=== PATIENT | male | born 1950 | race Two or more races ===

== ENCOUNTER 2018-06-11 11:15 | Inpatient (IN) ==
[2018-06-11] MEDS ORDERED: Metoprolol Tartrate 25 MG Tablet PO ONE (12:39)
[2018-06-11] MEDS ORDERED: Chlorhexidine Gluconate 2% 1 Pack (2 Cloths) TOPICAL ONE (12:39)
[2018-06-11] MEDS ORDERED: Sodium Chlor 0.9% Inj 500 ML IV.SIG SCH (13:00)
--- NOTE | 2018-06-11 13:03 | P.HPUP ---
The Pre-Admit History and Physical Examination regarding the above named patient was reviewed (including, but not limited to, vital signs, heart, lungs, co-morbid conditions), and upon re-examination it is noted that: the patient's condition has not significantly changed since the last examination.
[2018-06-11] MEDS ORDERED: Lidocaine PF 1% Inj 5 ML Syringe INFILTRATN ONE (13:20)
[2018-06-11] MEDS ORDERED: Glycopyrrolate Inj 1 MG/5 ML Syringe IV.PUSH ONE (13:20)
[2018-06-11] MEDS ORDERED: Lidocaine 1% Inj 50 ML Vial ONE ×2 (13:45→13:49)
[2018-06-11] MEDS ORDERED: Lidocaine 1% Inj 50 ML Vial INFILTRATN ONE (14:22)
[2018-06-11] MEDS ORDERED: Sugammadex Inj 200 MG/2 ML Vial IV.PUSH ONE (15:15)
[2018-06-11] MEDS ORDERED: Bupivacaine PF 0.5% Inj 30 ML Vial NERV BLOCK PRN (15:30)
[2018-06-11] MEDS ORDERED: Potassium Chlor 40 mEq Premix 40 MEQ/100 ML PIGGYBACK IV.SIG PRN (15:30)
[2018-06-11] MEDS ORDERED: Potassium Chlor 20 mEq Premix 20 MEQ/100 ML PIGGYBACK IV.SIG PRN (15:30)
[2018-06-11] MEDS ORDERED: Acetaminophen 325 MG Tablet PO PRN (15:30)
[2018-06-11] MEDS ORDERED: Ketorolac Inj 30 MG/ML (IVP) Vial IV.PUSH PRN (15:30)
[2018-06-11] MEDS ORDERED: *Meperidine Inj 25 MG/ML Vial PERIprocedural Use ONLY ONE (15:32)
[2018-06-11] MEDS ORDERED: Meloxicam 7.5 MG Tablet PO PRN (15:33)
[2018-06-11] MEDS ORDERED: Loratadine 10 MG Tablet PO PRN (15:33)
[2018-06-11] MEDS ORDERED: Pregabalin 75 MG Capsule PO PRN (15:33)
[2018-06-11] MEDS ORDERED: Naloxone Inj 0.4 MG/ML Vial IV.PUSH PRN (15:40)
[2018-06-11] MEDS ORDERED: fentaNYL Citrate Inj 100 MCG/2 ML Ampul ONE ×2 (15:45→15:46)
[2018-06-11] MEDS ORDERED: KCL 20 mEq/D5W/NaCl 0.9% Inj 1,000 ML ONE (15:55)
[2018-06-11] MEDS ORDERED: Morphine Inj 30 MG/30 ML PCA.VIAL PCA ONE (16:12)
[2018-06-11] MEDS ORDERED: *morphine SULFATE 10 MG/ML PERIprocedure ONLY ONE (16:40)
[2018-06-11] MEDS: KCL 20 mEq/D5W/NaCl 0.9% Inj 1,000 ML IV.CONT SCH ×2 (17:12→22:52)
[2018-06-11] MEDS: Morphine Inj 30 MG/30 ML PCA.VIAL PCA PRN (17:15)
[2018-06-12] MEDS: KCL 20 mEq/D5W/NaCl 0.9% Inj 1,000 ML IV.CONT SCH ×4 (02:40→22:18)
[2018-06-12] MEDS: Morphine Inj 30 MG/30 ML PCA.VIAL PCA PRN (04:25)
[2018-06-12 04:35] LABS: Baso % (Auto) 0.1 % (0.0-2.0); Hematocrit 39.9 % (39.0-51.0); Hemoglobin 13.3 gm/dL (13.0-17.0); Lymph # (Auto) 0.7 th/mm3 (1.0-4.8); Lymph % (Auto) 5.9 % (9.0-44.0); Mean Corpuscular HGB Conc 33.4 % (32.0-36.0); Mean Corpuscular Volume 89.8 fL (80.0-100.0); Mean Platelet Volume 8.8 fL (7.0-11.0); Mono # (Auto) 1.1 th/mm3 (0.0-0.9); Mono % (Auto) 9.3 % (0.0-8.0); Neut # (Auto) 10.4 th/mm3 (1.8-7.7); Neut % (Auto) 84.7 % (16.0-70.0); Platelet Count 227 th/mm3 (150-450); Red Blood Count 4.45 mil/mm3 (4.50-5.90); Red Cell Distribution Width 13.1 % (11.6-17.2); White Blood Count 12.3 th/mm3 (4.0-11.0)
[2018-06-12 05:08] LABS: Calcium 7.1 mg/dL (8.5-10.1); Carbon Dioxide 24.2 meq/L (21.0-32.0); Potassium 4.3 meq/L (3.5-5.1)
[2018-06-12 05:20] LABS: Total Protein 5.6 g/dL (6.4-8.2)
--- NOTE | 2018-06-12 07:58 | P.PNCS ---
Subjective Colorectal Surgery Post Op Day #: 1 Interval history: afebrile, VSS UO good JEANETTE serous Objective Result Diagrams: 06/12/18 04:01 06/12/18 04:01 Objective Remarks: PE alert Abd - soft, wound clean, dry Assessment and Plan - Plan Imp: stable post-op OOB decr IVF tx to floor
[2018-06-12] MEDS: Pantoprazole Inj 40 MG Vial IV.PUSH SCH (08:19)
--- NOTE | 2018-06-12 20:20 | MP ---
cc: Arnav Kyle MD DATE OF OPERATION: 06/11/2018 PREOPERATIVE DIAGNOSIS: Cancer of the sigmoid colon. PROCEDURE: Exploratory laparotomy with proctosigmoidectomy and low pelvic anastomosis. POSTOPERATIVE DIAGNOSIS: Cancer of the sigmoid colon. SURGEON: Arnav Kyle MD EXPLOSIVE ORDNANCE DISPOSAL MANAGER: Davy Zavala MD PROCEDURE: The patient was placed in the supine position. After adequate general anesthesia, his legs were placed in the universal stirrups and supported appropriately. The abdomen and perineum were then prepped with Betadine solution and draped in the usual sterile fashion. With Dr. Zavala's assistance, the abdomen was opened through an infraumbilical transverse incision, dividing the rectus muscles with electrocautery. Exploration revealed a palpable tumor injected with Jessica ink in the sigmoid colon. There was a somewhat redundant sigmoid loop. The proximal colon was palpated and felt to be pretty unremarkable. The small bowel was run from ligament of Treitz down to the ileocecal valve and felt to be normal. The liver did have several cysts, but no other masses were noted. The gallbladder was unremarkable. The stomach and duodenum were unremarkable. Great vessels were of normal caliber and fairly soft to palpation. First, the sigmoid colon was mobilized medially by dividing along the white line of Toldt. The left ureter was identified and carefully preserved. Dissection then proceeded up to the left gutter, freeing the attachments to the left colon and mobilizing towards the splenic flexure. The right retroperitoneal space was then opened and the bowel dissected off the presacral fascia, preserving the presacral nerves. The pedicle for the superior hemorrhoidal vessels identified, divided between Kellys and ligated with Vicryl ties. Dissection then proceeded down, mobilizing the bowel off the presacral fascia down to the pelvic floor. The cul-de-sac was opened and the bowel fully mobilized for preparation for the anastomosis. The bowel was divided in the proximal rectum by taking the mesorectum with electrocautery. The bowel was then divided between a pursestring suture device and a Cee clamp. The bowel was incised to reach the rectum without tension and with good blood supply, preserving the left colic vessel. The marginal artery was taken at the appropriate point and the bowel divided between a pursestring suture device and a Cee clamp. The end of the bowel was sized to accept an EEA stapling anvil and this was secured with a pursestring suture. Dr. Zavala inserted the EEA stapling instrument transanally and under direct vision, it was brought up to the end of the rectal pouch and the pursestring suture tied. The stapler was then reassembled and the bowel aligned properly, the stapler closed and fired. Upon withdrawal, 2 complete donuts of tissue were seen. Gentle insufflation did confirm an airtight anastomosis. The abdomen was then irrigated copiously with normal saline. Adequate hemostasis achieved at all sites. Thomas-Lucia drain placed down into the presacral space and brought up through a stab wound in the right lower quadrant, secured to the skin with a nylon suture. A transverse incision was then closed, anatomically in 2 layers using #1 PDS sutures to reapproximate the respective fascial layers. The On-Q catheters were placed into the rectus sheaths on both sides and brought up through subcutaneous tunnels above the transverse incision. The wound area was washed with normal saline and dried, and the skin closed with a running subcuticular Vicryl suture. Wound area was washed with normal saline and dried. Sterile dressing of Telfa and gauze applied. The patient tolerated the procedure quite well and was brought to the recovery room in stable condition. Arnav Kyle MD [facility]/chencho , 06:47 PM , 06:55 PM
[2018-06-13] MEDS: KCL 20 mEq/D5W/NaCl 0.9% Inj 1,000 ML IV.CONT SCH ×3 (04:28→20:25)
[2018-06-13 06:54] LABS: Baso % (Auto) 0.1 % (0.0-2.0); Hematocrit 38.9 % (39.0-51.0); Hemoglobin 13.1 gm/dL (13.0-17.0); Lymph % (Auto) 7.3 % (9.0-44.0); Mean Corpuscular HGB Conc 33.8 % (32.0-36.0); Mean Corpuscular Hemoglobin 30.1 pg (27.0-34.0); Mean Platelet Volume 9.3 fL (7.0-11.0); Mono # (Auto) 1.3 th/mm3 (0.0-0.9); Mono % (Auto) 10.1 % (0.0-8.0); Neut # (Auto) 10.8 th/mm3 (1.8-7.7); Neut % (Auto) 82.5 % (16.0-70.0); Platelet Count 192 th/mm3 (150-450); Red Blood Count 4.37 mil/mm3 (4.50-5.90); Red Cell Distribution Width 12.9 % (11.6-17.2); White Blood Count 13.1 th/mm3 (4.0-11.0)
[2018-06-13 07:00] LABS: Calcium 8.2 mg/dL (8.5-10.1); Carbon Dioxide 27.9 meq/L (21.0-32.0); Potassium 4.6 meq/L (3.5-5.1)
[2018-06-13] MEDS: Pantoprazole Inj 40 MG Vial IV.PUSH SCH (09:00)
[2018-06-13] MEDS: Morphine Inj 30 MG/30 ML PCA.VIAL PCA PRN (16:33)
[2018-06-13 21:03] VITALS: RESP 20
--- NOTE | 2018-06-13 23:19 | P.PNCS ---
Subjective Colorectal Surgery Post Op Day #: 2 Interval history: afebrile, VSS UO good JEANETTE less +hungry Objective Result Diagrams: 06/13/18 05:47 06/13/18 05:47 Objective Remarks: PE alert Abd - soft, wound clean,dry, min tympany Assessment and Plan - Plan Imp: OOB decr IVF start PO +nodes
[2018-06-14] MEDS: KCL 20 mEq/D5W/NaCl 0.9% Inj 1,000 ML IV.CONT SCH (04:13)
[2018-06-14] MEDS: Pantoprazole Inj 40 MG Vial IV.PUSH SCH (09:22)
[2018-06-14 13:13] VITALS: BP 144/80; PULSE 71; TEMP 97.8; O2SAT 98
--- NOTE | 2018-07-01 10:55 | MD ---
cc: Arnav Kyle MD,Obi Gross MD DATE OF DISCHARGE: 06/14/2018 ADMITTING DIAGNOSIS: Carcinoma of the sigmoid colon. PROCEDURE: On 06/11/2018, exploratory laparotomy with proctosigmoidectomy and low pelvic anastomosis. DISCHARGE DIAGNOSIS: Carcinoma of the sigmoid colon, T2 N1 M0. HISTORY OF PRESENT ILLNESS: Mr. Cho is a 67-year-old male in relatively good health, having had polyps taken out back in 2009. He has a family history of polyps as well. He has been taking pain medication for his back recently and has been straining, noticing some bright red blood with bowel movements. He usually goes to the bathroom daily with some use of Danish Tere. Denies any real abdominal pain. No discharge or diarrhea. Denies any nausea, vomiting, abdominal distention, or melena. Says his appetite has been good. Weight stable, about 185 pounds. Outpatient colonoscopy revealed a carcinoma of the sigmoid colon. CT scanning of the abdomen, pelvis, and chest were unremarkable for any metastatic disease. The patient was admitted at this time for definitive surgical resection. Please see his history and physical for more complete past medical and surgical history. PERTINENT PHYSICAL EXAMINATION: GENERAL: A very pleasant, heavyset male in no acute distress. HEENT: Remarkable for pink, dry membranes. Nonicteric sclerae. NECK: A little stiff without adenopathy. CHEST: Relatively clear, symmetrical expanding, decreased in the bases. HEART: Heart had a regular rhythm. ABDOMEN: Doughy and soft, minimally distended. Normal bowel sounds. No rebound, guarding, or masses noted. RECTAL: Anal inspection revealed benign canal. Digital exam revealed good tone. No masses or tenderness, but some blood on the paper. Proctosigmoidoscopy revealed an ulcerated cancer in the sigmoid colon without luminal obstruction. Moderate amount of discharge and bleeding. EXTREMITIES: No cyanosis or clubbing and minimal 1+ pedal edema. HOSPITAL COURSE: After admission, the patient was taken to the operating room on 06/11/2018, at which point he underwent an exploratory laparotomy with proctosigmoidectomy and low pelvic anastomosis. He was found to have a carcinoma of the sigmoid colon with some serosal puckering but it was not adherent to any surrounding structures. He did have a normal-appearing liver and gallbladder. He tolerated the procedure quite well. He initially stabilized in the progressive care unit. His bowel function returned quite promptly and his diet was advanced accordingly. He was able to be weaned off his IV fluids. Physical therapy was used to gain some strength and additional mobility. The patient was eating well on oral pain medication and considered ready for discharge home on 06/14/2018. PATHOLOGY: Final pathology report did reveal a [id number] differentiated adenocarcinoma with metastatic cancer in 1 of 19 pericolonic lymph nodes. Final stage was T2 N1 M0. DISCHARGE INSTRUCTIONS: The patient was discharged eating a regular diet. He was encouraged to ambulate daily, avoiding any heavy lifting or straining. All preop medications were to be resumed. The patient will be seen in the office in 1 week's time for routine followup. Any problems prior to the scheduled office visit, he was encouraged to call for more urgent attention. The patient will be considered for adjuvant chemotherapy in the outpatient setting. MD ADE Mathew/gemma , 10:38 PM , 10:47 PM
== END 2018-06-14 14:51 | disposition home or self-care (01) ==
LOC: HSDI 11:15 → HCPC 17:00 → N07 06-13 14:56
PROVIDERS: ADMIT Colon & Rectal Surgery; ATTEND Colon & Rectal Surgery